=== PATIENT | male | born 1985 | race Caucasian/White ===

== ENCOUNTER 2024-07-25 08:14 | Emergency (ER) | payer OTHER, SELFPAY ==
--- NOTE | 2024-07-25 08:22 | ED.EAR ---
HPI - Ear Problem General Chief complaint: Ear Stated complaint: SORE THROAT Source: patient and RN notes reviewed Mode of arrival: ambulatory Limitations: no limitations History of Present Illness HPI Narrative: Patient is a 38-year-old male who presents to the [facility] with complaints of sore throat, fever, bilateral ear pain for the last couple days. Patient states that he did a tele health visit on Wednesday and was prescribed amoxicillin for potential strep. He states that he has been taking the medication as prescribed but his symptoms continued to worsen. Reports worsening sore throat. States that he has hardly been able to eat/drink due to the pain. He also reports bilateral ear pain. Denies ear drainage. He is currently afebrile. Denies cough or congestion. Related Data Home Medications ?Medication ?Instructions ?Recorded ?Confirmed ?Last Taken ?Type cetirizine 10 mg capsule (Zyrtec) 10 mg PO DAILY 12/24/21 04/28/24 Unknown History fluticasone fur. 100 mcg-umeclid 1 inh inhalation DAILY 09/28/22 04/28/24 Unknown History 62.5 mcg-vilant 25 mcg inhalat.powder (Trelegy Ellipta) amoxicillin 500 mg capsule mg 07/25/24 Unknown History Allergies Allergy/AdvReac Type Severity Reaction Status Date / Time hydrocodone Allergy Unknown Unknown Verified 07/25/24 08:31 Review of Systems Review of Systems: CONSTITUTIONAL: Reports fever, chills, and sweats. EYES: Denies visual changes, redness, or discharge. ENT: Reports otalgia and sore throat CARDIOVASCULAR: Denies chest pain, palpitations, or edema. RESPIRATORY: Denies cough or dyspnea. GASTROINTESTINAL: Denies abdominal pain, nausea, vomiting, or diarrhea. GENITOURINARY: Denies dysuria or hematuria. SKIN: Denies rash or itching. MUSCULOSKELETAL: Denies back pain, joint pain, or myalgia. NEUROLOGIC: Denies headache, numbness, or weakness. Pertinent positives per HPI. [facility] Past Medical History Medical History BMI 38.0-38.9,adult Melanoma Varicocele Attention-deficit hyperactivity disorder, unspecified type Gastroesophageal reflux disease Mixed hyperlipidemia Family History Family History Grandparent Family history of pancreatic cancer Family history of primary malignant neoplasm of liver Family history of coronary artery disease Diabetes mellitus Father Hypertension ADD (attention deficit disorder) Stomach ulcer GI bleed SVT (supraventricular tachycardia) Mother Hypothyroid Hypertension Other Cerebrovascular accident Family history of alcoholism Family history of arthritis Social History Social History Smoking status: Never smoker Second hand tobacco smoke exposure: No Alcohol intake: current Drinks per week: 1 Substance use: never Substance use type: does not use Living arrangements: with family Occupation/Education: occupation 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 There is no relevant family history pertinent to the patient complaint. Exam Narrative: GENERAL: This is a well-nourished, well-developed patient, in no apparent distress. HEAD: normocephalic, atraumatic. EYES: Sclera clear/white. Vision is grossly intact. EARS: External ears normal, auditory canals clear and without drainage, TMs normal without perforation. Hearing grossly intact. NOSE: External nose normal with no obvious nasal discharge, nares without redness, no rhinorrhea. THROAT: Mucous membranes moist, Oropharyngeal erythema with swelling and significant exudate. No ulceration. No abscess. NECK: Neck supple, non-tender without lymphadenopathy, masses or thyromegaly. CARDIOVASCULAR: Regular rate and rhythm without murmurs, gallops, or rubs. RESPIRATORY: Clear to auscultation. Breath sounds equal bilaterally. No wheezes, rales, or rhonchi. GASTROINTESTINAL: Abdomen soft, non-tender, nondistended. Bowel sounds are active. No hepato-splenomegaly, or palpable masses. No guarding. SKIN: warm, intact with no suspicious lesions or rash, good texture and turgor. NEURO: awake, alert, and oriented to person, place and time. There were no obvious focal neurologic abnormalities. Course Course Level of Care: Express Care Visit Vital Signs Vital signs: Vital Signs Temperature 98.3 F 07/25/24 08:29 Pulse Rate 76 07/25/24 08:29 Respiratory Rate 16 07/25/24 08:29 Blood Pressure 131/73 07/25/24 08:29 Pulse Oximetry 98 07/25/24 08:29 Temperature 98.3 F 07/25/24 08:29 Pulse Rate 76 07/25/24 08:29 Respiratory Rate 16 07/25/24 08:29 Blood Pressure 131/73 07/25/24 08:29 Pulse Oximetry 98 07/25/24 08:29 Reviewed Medical Decision Making MDM Narrative Medical decision making narrative: After 24 hours on antibiotics throw tooth brush away and start using a new one. Increase your Vitamin C. Do not share drinks. Take Motrin alternating with Tylenol for pain and/or fever alternating every 4 hours. Increase fluids, avoid caffeine. Take a probiotic daily or eat a low sugar yogurt while taking the antibiotic. Follow up with Primary provider if not getting better this week Differential Diagnosis Differential Diagnosis: otitis media, otitis externa, cerumen impaction, strep pharyngitis, influenza Vital Signs Vital Signs: Vital Signs Temperature 98.3 F 07/25/24 08:29 Pulse Rate 76 07/25/24 08:29 Respiratory Rate 16 07/25/24 08:29 Blood Pressure 131/73 07/25/24 08:29 Pulse Oximetry 98 07/25/24 08:29 Temperature 98.3 F 07/25/24 08:29 Pulse Rate 76 07/25/24 08:29 Respiratory Rate 16 07/25/24 08:29 Blood Pressure 131/73 07/25/24 08:29 Pulse Oximetry 98 07/25/24 08:29 Lab Data Lab results reviewed: Yes I reviewed the patient's lab results. Labs: Lab Results 07/25/24 Range/Units 08:45 POC Influenza A Ag Negative (Negative) POC Influenza B Ag Negative (Negative) POC Grp A Strep Screen Negative (Negative) Critical Care Time Critical Care Time Critical Care Time: No Discharge Plan Discharge Clinical Impression: Acute bacterial tonsillitis Patient Disposition: Home, Self-Care Condition: Stable Instructions: Antibiotic Form, Tonsillitis (ED) Additional Instructions: After 24 hours on antibiotics throw tooth brush away and start using a new one. Increase your Vitamin C. Do not share drinks. Take Motrin alternating with Tylenol for pain and/or fever alternating every 4 hours. Increase fluids, avoid caffeine. Take a probiotic daily or eat a low sugar yogurt while taking the antibiotic. Follow up with Primary provider if not getting better this week Patient Language: Spanish Prescriptions: New amoxicillin-pot clavulanate 875-125 mg tablet 1 tablet PO Q12H 10 Days Qty: 20 0RF prednisone 50 mg tablet 50 mg PO DAILY 5 Days Qty: 5 0RF No Action amoxicillin 500 mg capsule Trelegy Ellipta 100-62.5-25 mcg blister with device 1 inh inhalation DAILY Zyrtec 10 mg capsule 10 mg PO DAILY nebivolol [Bystolic] 10 mg tablet 5 mg PO DAILY Qty: 90 0RF (DME) pen needle, diabetic [BD Ultra-Fine Radha Pen Needle] 32 gauge x / needle See Rx Instructions .ROUTE .MEDSUPPLY Qty: 100 0RF Rx Instructions: As directed for saxenda pen montelukast 10 mg tablet See Rx Instructions .ROUTE .COMPLEX Qty: 90 3RF Dose Instruction: TAKE 1 TABLET BY MOUTH DAILY Rx Instructions: TAKE 1 TABLET BY MOUTH DAILY omeprazole 40 mg capsule,delayed release(DR/EC) See Rx Instructions .ROUTE .COMPLEX Qty: 90 3RF Dose Instruction: TAKE 1 CAPSULE BY MOUTH DAILY BEFORE A MEAL Rx Instructions: TAKE 1 CAPSULE BY MOUTH DAILY BEFORE A MEAL albuterol sulfate 90 mcg/actuation HFA aerosol inhaler 1 inh inhalation Q4H PRN (Reason: shortness of breath or wheezing) Qty: 6.7 1RF alprazolam 0.5 mg tablet 0.5 mg PO DAILY PRN (Reason: anxiety) Qty: 30 0RF fluoxetine 20 mg capsule See Rx Instructions .ROUTE .COMPLEX Qty: 90 3RF Dose Instruction: TAKE 1 CAPSULE BY MOUTH DAILY Rx Instructions: TAKE 1 CAPSULE BY MOUTH DAILY Contrave 8-90 mg tablet extended release 1 tablet PO QAM Qty: 90 3RF Rx Instructions: Take 1 tablet daily for one week, then increase to one tablet twice daily for 1 week, the third week take 2 tablets each morning and then 1 tablet in the evening. bupropion HCl [Wellbutrin XL] 150 mg tablet extended release 24 hr 150 mg PO QAM Qty: 90 3RF lisdexamfetamine [Vyvanse] 60 mg capsule 60 mg PO DAILY Qty: 30 0RF Follow-up/Referrals: Junior Quinteros MD [Primary Care Provider] - Time of Disposition: 08:50
[2024-07-25 08:29] VITALS: BP 131/73; PULSE 76; RESP 16; TEMP 36.8; O2SAT 98
[2024-07-25] MEDS: methylPREDNISolone SOD SUCC 125 MG VIAL 80 MG IM (08:37)
[2024-07-25 08:48] LABS: EDINFLUASCREEN Negative (Negative); EDINFLUBSCREEN Negative (Negative); EDSTREPNEGPOS1 Negative (Negative)
== END 2024-07-25 08:52 | disposition home or self-care (01) ==
PROVIDERS: Emergency Provider Nurse Practitioner; PCP Family Medicine
DX: J03.90 Acute tonsillitis, unspecified (principal); K21.9 Gastro-esophageal reflux disease without esophagitis; E78.2 Mixed hyperlipidemia; F90.9 Attention-deficit hyperactivity disorder, unspecified type; Z85.820 Personal history of malignant melanoma of skin
CPT/HCPCS: 87081; 87804; 87880; 96372; 99213; G0463; J2919

== ENCOUNTER 2025-03-14 08:05 | Emergency (ER) | payer OTHER, SELFPAY ==
--- NOTE | 2025-03-14 08:09 | ED_ITS ---
HPI - General Adult General Chief complaint: Upper Respiratory Infection Stated complaint: SORE THROAT Source: patient Mode of arrival: ambulatory Limitations: no limitations History of Present Illness HPI narrative: Patient is a 39-year-old male presenting with complaint of sore throat. This is exactly include cough, right autogenous, voice hoarseness. Symptoms began 2 days ago. No known exposure to COVID, flu, strep, pneumonia. Reports his children have sinus infections. No treatment initiated prior to arrival. No additional complaints. Related Data Home Medications ?Medication ?Instructions ?Recorded ?Confirmed ?Last Taken ?Type cetirizine 10 mg capsule (Zyrtec) 10 mg PO DAILY 12/2403/14/25 Unknown History fluticasone fur. 100 mcg-umeclid 1 inh inhalation DAVID Y 09/28/22 03/14/25 Unknown History 62.5 mcg-vilant 25 mcg inhalat.powder (Trelegy Ellipta) Allergies Allergy/AdvReac Type Severity Reaction Status Date / Time hydrocodone Allergy Unknown Unknown Verified 03/14/25 08:18 Review of Systems Review of Systems: CONSTITUTIONAL: Denies body aches, fever, chills, or sweats. EYES: Denies visual changes, redness, or discharge. ENT: reports sore throat, right otalgia, voice hoarseness,Denies rhinorrhea, congestion CARDIOVASCULAR: Denies chest pain, palpitations, or edema. RESPIRATORY: Reports cough denies dyspnea. GASTROINTESTINAL: Denies abdominal pain, nausea, vomiting, or diarrhea. GENITOURINARY: Denies dysuria or hematuria. SKIN: Denies rash, itching, or wounds. MUSCULOSKELETAL: Denies back pain, joint pain, or myalgia. NEUROLOGIC: Denies headache, numbness, tingling, or weakness. PSYCH: Denies depression or anxiety. All systems reviewed & are unremarkable except as noted in HPI and below [facility] Past Medical History Medical History BMI 38.0-38.9,adult Melanoma Varicocele Attention-deficit hyperactivity disorder, unspecified type Gastroesophageal reflux disease Mixed hyperlipidemia Family History Family History Grandparent Family history of pancreatic cancer Family history of primary malignant neoplasm of liver Family history of coronary artery disease Diabetes mellitus Father Hypertension ADD (attention deficit disorder) Stomach ulcer GI bleed SVT (supraventricular tachycardia) Mother Hypothyroid Hypertension Other Cerebrovascular accident Family history of alcoholism Family history of arthritis Social History Social History Second hand tobacco smoke exposure: No Alcohol intake: current Drinks per week: 1 Substance use: never Substance use type: does not use Living arrangements: with family Occupation/Education: occupation 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 HEAD: Normocephalic, atraumatic. EYES: EOMI. No redness or drainage. Conjunctivae normal. ENT: Mucous membranes pink and moist. Nares clear. No rhinorrhea. TMs normal bilaterally. Throat normal. Uvula midline. moderate amount of clear, postnasal drainage. Voice is hoarse. NECK: Normal AROM. Supple. No lymphadenopathy. CHEST: No respiratory distress. Clear to auscultation. HEART: Regular rate and rhythm. No murmur appreciated. Normal peripheral pulses. ABDOMEN: Soft, nontender, nondistended, normal active bowel sounds. MUSCULOSKELETAL: No bony tenderness. EXTREMITIES: Normal range of motion. No edema. SKIN: Warm, dry, no rash. Capillary refill normal. Normal skin turgor. NEURO: No focal deficits. Alert and oriented x3. Gait steady. PSYCH: Normal affect. No signs of depression or anxiety. Course Course Level of Care: Express Care Visit Medical Decision Making MDM Narrative Medical decision making narrative: PT declined covid/flu testing Requested steriod shot. Made aware of lack of evidence to support the role of use in uncomplicated viral upper respiratory infections. Talked about viral process, treating sx, etc. Lab Data Lab results reviewed: Yes I reviewed the patient's lab results. Discharge Plan Discharge Clinical Impression: Upper respiratory infection Patient Disposition: Home Condition: Stable Instructions: Antibiotic Form Additional Instructions: Go straight to ER should your symptoms become worse or should any new symptoms develop Patient Language: Lithuanian Prescriptions: No Action Trelegy Ellipta 100-62.5-25 mcg blister with device 1 inh inhalation DAILY Zyrtec 10 mg capsule 10 mg PO DAILY Airsupra 90-80 mcg/actuation HFA aerosol inhaler 2 inh inhalation 6XD PRN (Reason: shortness of breath) Qty: 32.1 3RF (DME) pen needle, diabetic [BD Ultra-Fine Radha Pen Needle] 32 gauge x 5/32 needle See Rx Instructions .ROUTE .MEDSUPPLY Qty: 100 0RF Rx Instructions: As directed for anisa pen fluoxetine 20 mg capsule See Rx Instructions .ROUTE .COMPLEX Qty: 90 3RF Dose Instruction: TAKE 1 CAPSULE BY MOUTH DAILY Rx Instructions: TAKE 1 CAPSULE BY MOUTH DAILY Contrave 8-90 mg tablet extended release 1 tablet PO QAM Qty: 90 3RF Rx Instructions: Take 1 tablet daily for one week, then increase to one tablet twice daily for 1 week, the third week take 2 tablets each morning and then 1 tablet in the evening. bupropion HCl [Wellbutrin XL] 150 mg tablet extended release 24 hr 150 mg PO QAM Qty: 90 3RF albuterol sulfate 90 mcg/actuation HFA aerosol inhaler 1 inh inhalation Q4H PRN (Reason: shortness of breath or wheezing) Qty: 6.7 1RF omeprazole 40 mg capsule,delayed release(DR/EC) See Rx Instructions .ROUTE .COMPLEX Qty: 90 3RF Dose Instruction: TAKE 1 CAPSULE BY MOUTH DAILY BEFORE A MEAL Rx Instructions: TAKE 1 CAPSULE BY MOUTH DAILY BEFORE A MEAL montelukast 10 mg tablet See Rx Instructions .ROUTE .COMPLEX Qty: 90 3RF Dose Instruction: TAKE 1 TABLET BY MOUTH DAILY Rx Instructions: TAKE 1 TABLET BY MOUTH DAILY nebivolol [Bystolic] 10 mg tablet 5 mg PO DAILY Qty: 90 0RF dextroamphetamine-amphetamine [Adderall] 10 mg tablet 10 mg PO DAILY Qty: 30 0RF Rx Instructions: 1 in the afternoon prn generic dextroamphetamine-amphetamine [Adderall XR] 30 mg capsule,extended release 24hr 30 mg PO DAILY Qty: 30 0RF Rx Instructions: generic alprazolam 0.5 mg tablet 0.5 mg PO DAILY PRN (Reason: anxiety) Qty: 30 0RF Follow-up/Referrals: Junior Quinteros MD [Primary Care Provider, Family Practice] - 03/15/25 Stand Alone Forms: Work/School Release IP Time of Disposition: :27
[2025-03-14 08:10] VITALS: BP 124/81; PULSE 91; RESP 16; TEMP 36.7; O2SAT 99
[2025-03-14 08:45] LABS: EDSTREPNEGPOS1 Negative (Negative)
== END 2025-03-14 08:30 | disposition home or self-care (01) ==
PROVIDERS: Emergency Provider Registered Nurse; PCP Family Medicine
DX: J06.9 Acute upper respiratory infection, unspecified (principal); E78.2 Mixed hyperlipidemia; K21.9 Gastro-esophageal reflux disease without esophagitis; F90.9 Attention-deficit hyperactivity disorder, unspecified type; Z85.820 Personal history of malignant melanoma of skin
CPT/HCPCS: 87081; 87880; 99213; G0463